=== PATIENT | male | born 1940 | race Caucasian/White ===

== ENCOUNTER 2019-03-28 20:07 | Observation (INO) ==
[2019-03-28] MEDS ORDERED: ASPIRIN PO ONE (20:20)
--- NOTE | 2019-03-28 21:11 | Diag Imaging Result Doc PS360 ---
EXAM: CHEST-2 VIEWS 03/28/2019 HISTORY: sob TECHNIQUE: PA and lateral chest COMMENT: There is a calcified granuloma in the left lower lobe. There are calcified nodes in the subcarina. The heart size is smaller in appearance than on 01/05/2019. The lungs are also clearer. There is a double-lumen dialysis catheter in the right internal jugular with its tip just above the right atrium. IMPRESSION: Improved cardiomegaly and pulmonary edema. Electronically signed by Tyson Shore 03/28/2019 9:09 PM
[2019-03-28 23:03] LABS: BASO# 0.02 X1000 (0.0-0.2); BASO% 0.6 % (0.0-0.8); EOS# 0.06 X1000 (0.0-0.7); EOS% 1.7 % (0.0-10.0); HEMATOCRIT 31.9 % (42.0-52.0); HEMOGLOBIN 10.3 g/dL (14.0-18.0); IMM GRAN# 0.03 X1000 (0.0-0.04); IMM GRAN% 0.9 % (0.0-0.5); LYMPH# 0.63 X1000 (1.2-3.4); LYMPH% 18.2 % (20.5-51.1); MCH 32.3 PG (27-31); MCHC 32.3 g/dL (33-37); MONO# 0.37 X1000 (0.11-0.59); MONO% 10.7 % (1.7-9.3); MPV 13.1 FL (7.4-10.4); NEUT# 2.35 X1000 (1.4-6.5); NEUT% 67.9 % (42.2-75.2); PLT 43 X1000 (130-400); RBC 3.19 XMIL (4.7-6.1); RDW 14.9 % (11.5-14.5); WBC 3.46 X1000 (4.8-10.8)
[2019-03-28 23:14] LABS: INR 1.02; PROTIME 14.2 Seconds (11.0-16.0)
[2019-03-28 23:26] LABS: ALB/GLOB RATIO 0.6; CREATININE 3.5 mg/dL (0.7-1.2); POTASSIUM 4.3 mmol/L (3.5-5.1); TOTAL BILIRUBIN 0.88 mg/dL (0.20-1.00); TOTAL PROTEIN 7.7 g/dL (6.3-8.3)
[2019-03-28 23:31] LABS: CALCIUM 6.8 mg/dL (8.8-10.2)
[2019-03-29] MEDS ORDERED: CALCIUM GLUCONATE 1 GM in NS 50 ML IV ONE (00:11)
[2019-03-29] MEDS ORDERED: NORCO-10 PO ONE (00:28)
[2019-03-29] MEDS ORDERED: ZOFRAN IV ONE (00:54)
[2019-03-29] MEDS ORDERED: DILAUDID IV ONE (00:54)
--- NOTE | 2019-03-29 01:08 | PROVIDER DOCUMENTATION ---
This chart was entered by Tammy Burdick Scribe, acting as scribe for Kleber Wilkinson MD. HPI-General Adult - General Chief Complaint: Shortness of Breath Stated Complaint: BONE CANCER--SOB Time Seen by Provider: 03/28/19 20:55 Source: patient, family Allergies/Adverse Reactions: Patient Allergies Allergy/AdvReac Type Severity Reaction Status Date / Time lenalidomide [From Revlimid] Allergy ANAPHYLAXIS Verified 08/20/18 10:22 ondansetron [From Zofran] Allergy Unknown Verified 08/20/18 10:23 Home Medications: Home Medication List Medication Instructions Recorded Confirmed Last Taken Type Aspirin [Aspir-Low] 81 mg PO DAILY 03/31/18 01/01/19 01/07/19 History Atorvastatin Calcium [Lipitor] 80 mg PO QHS 03/31/18 01/01/19 01/07/19 History Diphenhydramine [Benadryl] 25 mg PO HS 03/31/18 01/01/19 01/07/19 History Levothyroxine [Synthroid] 112 microgm PO DAILY 03/31/18 01/01/19 01/01/19 History Multivitamin [Multivitamins] 1 each PO DAILY 03/31/18 01/01/19 01/08/19 History Tamsulosin [Flomax] 0.4 mg PO QHS 03/31/18 01/01/19 01/07/19 History Carvedilol [Coreg] 6.25 mg PO BID #60 tab 04/07/18 01/01/19 01/08/19 Rx Ondansetron Odt [Zofran 4 mg Odt] 4 mg PO Q6H PRN PRN #30 tab 04/07/18 01/01/19 08/20/18 Rx Hydrocodone/Acetaminophen [[place] 10 each PO Q6H PRN 08/20/18 01/01/19 01/08/19 History 7.5-325 Tablet] Cetirizine HCl [Zyrtec] 10 mg PO DAILY 01/01/19 01/01/19 01/08/19 History Dronabinol [Marinol] 10 mg PO BID 01/01/19 01/01/19 01/08/19 History Furosemide [Lasix] 40 mg PO DAILY PRN PRN 0401/01/19 12/26/18 History Lenalidomide [Revlimid] 5 mg PO EVERY OTHER DAY 01/01/19 01/01/19 12/31/18 History - History of Present Illness -Gen Adult Nature of Presenting Problems: Pt is 78/M presenting to ED w/ low o2 at home, at bedside sts that it was 86% at 17:30. He has had some increasing weakness and some coughing. Pt currently is on Chemo for bone cancer. He is also a MWF dialysis PT. HX of HTN,COPD as well. Pt is a 1 PPD smoker. Severity: reports: mild Onset/Duration: reports: 1-3 hours ago Timing: reports: still present Context/Activities at Onset: reports: none Modifying Factors: improves with: nothing Associated Symptoms: reports: cough, weakness. denies: chest pain, diaphoresis, dizziness, nausea Similar Symptoms Previously?: No Recently seen or treated by another doctor?: No Review of Systems - Adult - REVIEW OF SYSTEMS - ADULT Constitutional: reports: no symptoms reported. denies: chills, fever Eyes: reports: no symptoms reported Ears, Nose, Mouth & Throat: reports: no symptoms reported Cardiovascular: reports: no symptoms reported. denies: chest pain Respiratory: reports: cough, shortness of breath. denies: wheezing Gastrointestinal: reports: no symptoms reported. denies: abdominal pain, nausea, vomiting Genitourinary: reports: no symptoms reported Musculoskeletal: reports: no symptoms reported Integumentary: reports: no symptoms reported Neurological: reports: no symptoms reported. denies: dizziness/vertigo, hea dache/migraines Psychiatric: reports: no symptoms reported Endocrine: reports: no symptoms reported Hematologic/Lymphatic: reports: no symptoms reported Allergic/Immunologic: reports: no symptoms reported All Other Systems: Reviewed and Negative Past History - Adult - PAST MEDICAL HISTORY-ADULT Review of Records: reports: Old Records Reviewed, Nursing Assessment Review, Medications Reviewed, Social history reviewed & non-contributory. Genitourinary: reports: cancer (prostate) - PRIOR SURGERIES/PROCEDURES Surgical/Procedure History: reports: reviewed, not pertinent - IMMUNIZATION STATUS Childhood Immunizations: See Nurse Assessment Flu Vaccine: See Nurse Assessment - FAMILY HISTORY Family History: reviewed, not pertinent - SOCIAL HISTORY Smoking: cigarettes, greater than 1 pack/day Provider spent 3-5 mins advising pt. on dangers of tobacco.: Discussed manners to quit use, and f/u contacts for add'l counseling. Substance Use: none/never Alcohol Use Frequency: never Living Situation: family Physical Exam-General - PHYSICAL EXAM-ADULT Initial Vital Signs Reviewed: Yes - CONSTITUTIONAL General Appearance: appears well, alert, no apparent distress - EYES Eyes: PERRL/EOMI, pink conjunctivae - HEAD, EARS, NOSE, MOUTH & THROAT HENMT: normocephalic/atraumatic, moist mucous membranes, normal ENT inspection, TMs normal, pharynx normal - NECK Neck: non-tender, full range of motion, supple - RESPIRATORY Respiratory: lungs clear. negative: crackles, rales, rhonchi - CARDIOVASCULAR Cardiovascular: regular rate, rhythm. negative: JVD, gallop/S3, irregularly irregular - GASTROINTESTINAL (ABDOMEN) Abdominal Exam: normal bowel sounds, non tender, soft - LYMPHATIC Lymphatic: no adenopathy - MUSCULOSKELETAL Back Exam: normal inspection, no CVA tenderness, no vertebral tenderness Extremity: normal range of motion, non-tender, normal gait, normal inspection, no pedal edema, no calf tenderness, tenderness (mild to moderate generalized tenderness of all 4 extremities) - SKIN Integumentary: normal color, warm/dry - NEUROLOGIC Neurologic: cps team lead II-XII nml as tested, grossly normal, no motor/sensory deficits. negative: facial droop, focal weakness - PSYCHIATRIC Psych/Mental Status: normal mood/affect, normal thought content, normal thought process, oriented x 3 Progress - PLAN OF CARE/RESULTS Progress/Plan/Lab Results: Vital Signs - 8 hr 03/28/19 20:11 Temperature 98.0 F Pulse Rate 59 L Respiratory Rate 18 Blood Pressure 124/58 O2 Sat by Pulse Oximetry 92 L Orders Category Date Time Status Cardiac Monitoring DIRECTED Care 03/28/19 20:21 Active Oxygen Therapy- ED Nursing DIRECTED Care 03/28/19 20:21 Active Saline Loc NOW Care 03/28/19 20:21 Active CHEST-2 VIEWS [RAD] Stat Exams 03/28/19 20:21 Taken CBC WITH ELECTRONIC DIFF [HEME] Stat Lab 03/28/19 20:21 Uncollected CK PROFILE [SP CHEM] Stat Lab 03/28/19 20:21 Uncollected COMPREHENSIVE METABOLIC PANEL [CHEM] Stat Lab 03/28/19 20:21 Uncollected PRO B-NATRIURETIC PEPTIDE Stat Lab 03/28/19 20:21 Uncollected PROTIME WITH INR [COAG] Stat Lab 03/28/19 20:21 Uncollected PTT [COAG] Stat Lab 03/28/19 20:21 Uncollected TROPONIN T Stat Lab 03/28/19 20:21 Uncollected Aspirin Med 03/28/19 20:20 Discontinued 325 mg PO NOW ONE CP/SOB/Palp >45 yrs of Age Stat Oth 03/28/19 20:20 Ordered EKG [EKG] Stat Ther 03/28/19 20:21 Ordered Result Diagrams: 03/28/19 22:35 03/28/19 22:35 - EKG 1 Time of EKG reading by physician:: 20:25 EKG Read and Signed by:: Kleber Wilkinson EKG Interpretation (*Must complete 3 of following elements*): Abnormal (sinus rhythm with premature atrial complexes. Left axis deviation, Voltage criteria for left ventricular hypertrophy. Inferior infarct, age undetermined. Prolonged QT, Abnormal ECG) Rate: 67 Rhythm: Sinus rhythm [place]: left QRS: normal IA Interval: normal ST Wave: normal Departure - Departure Date of Disposition Decision: 03/29/19 Time of Disposition Decision: 01:06 DIAGNOSIS: Chest pain, SOB (shortness of breath), Elevated troponin, ESRD (end stage renal disease) on dialysis, Hypocalcemia Disposition: ADMITTED INPATIENT 09 Certified Medical Emergency: Emergent Condition: Fair Referrals and Follow-Ups: None,PCP [Primary Care Provider] - - Critical Care Note This patient required my direct & personal management of CC.: No Attestation - Physician/ EMMETT Attestation Patient care was provided by Advanced Practice Provider:: No The physician spent face to face time with patient:: Yes Advanced Practice Provider documentation review:: Supervising physician onsite and consulted in the evaluation and care of this patient. The physician did have a face to face encounter with the patient. This chart was documented by the indicated scribe, (Tammy Burdick Scribe) and accurately reflects the services I performed and decisions made by , Kleber Wilkinson MD, as attested by the provider's signature.
--- NOTE | 2019-03-29 02:38 | HISTORY AND PHYSICAL ---
PRIMARY CARE PHYSICIAN: Dr. Gunter. CHIEF COMPLAINT: Pain all over. HISTORY OF PRESENTING ILLNESS: An 78-year-old male with a history of prostate cancer, multiple myeloma, coronary artery disease, end-stage renal disease on renal dialysis Saturday, and Saturday, who had presented to emergency department with complaint of worsening pain all over. The patient states that his shoulder hurts, his back hurts and multiple joints he is having pain. Patient states that his [place] is not lasting that long and his pain has not improved. The patient was evaluated in the emergency department. Due to his intractable pain, it was thought that we will place him for observation for further evaluation and management. At the time of my examination, he had denied any headache, fever, chills, chest pain, hemoptysis, but complained of pain all over. PAST MEDICAL HISTORY: Includes prostate cancer, multiple myeloma, coronary artery disease, hypothyroidism, end-stage renal disease. PAST SURGICAL HISTORY: Coronary artery bypass. ALLERGIES: Zofran. CURRENT MEDICATIONS: Aspirin 81 mg p.o. daily, atorvastatin 80 mg p.o. at bedtime, carvedilol 6.25 mg p.o. b.i.d., Marinol 10 mg p.o. b.i.d., Lasix 40 mg p.o. daily, [place] 7.5 one p.o. q.6 hours, Revlimid 5 mg as directed, levothyroxine 112 mcg p.o. daily, Flomax 0.4 mg p.o. at bedtime. SOCIAL HISTORY: 60+ pack years history of smoking. Denies any history of alcohol or illicit drug use. FAMILY HISTORY: Positive for coronary artery disease in mother. REVIEW OF SYSTEMS: Fourteen point review of system as listed in HPI. Other systems negative. PHYSICAL EXAMINATION: GENERAL: Cooperative, friendly male. He is complaining of pain all over. VITAL SIGNS: Temperature 98.0 degrees, pulse 69, respiration 18, blood pressure 124/58. He is saturating 92% on room air. HEENT: Atraumatic, normocephalic. Extraocular movements intact. PERRLA. NECK: No masses. CHEST: Rhonchi. CARDIOVASCULAR: Regular rate and rhythm. ABDOMEN: Soft, positive bowel sounds. EXTREMITIES: No edema. NEUROLOGIC: He is awake, alert, oriented x3. GENITOURINARY: No bladder distention. SKIN: Warm. LABORATORIES AND STUDIES: WBC 3.46, hemoglobin 10.2, hematocrit 31.9, platelets 43,000. Sodium 135, potassium 4.3, chloride 89, CO2 is 31, BUN is 27, creatinine 3.5, glucose is 120. ProBNP is 35,000. Troponin is 0.091. ASSESSMENT: An 78-year-old elderly male with a history of prostate cancer, multiple myeloma, coronary artery disease, end-stage renal disease, who had presented to the emergency department with complaint of pain all over. He states that his current pain medication is not lasting long enough to relieve his pain. He was evaluated in the emergency department and due to his presenting symptoms we will place him for observation for further evaluation and management. 1. Intractable pain. 2. Multiple myeloma. 3. Elevated troponin in setting of end-stage renal disease. 4. Hypothyroidism. PLAN: 1. We will admit patient to medical floor with telemetry. 2. We will continue with supportive treatment with adequate pain control. 3. We will consult his oncologist for his multiple myeloma. 4. Continue to trend troponins. 5. Restart other home medications. 6. We will put patient on DVT prophylaxis with SCD. 7. We will continue to follow, and reassess and make further recommendation based on patient's clinical course. cc: Roe Pacheco MD
[2019-03-29] MEDS: PERCOCET-10 PO PRN ×3 (03:57→20:03)
[2019-03-29] MEDS: DUONEB (A & A) INH PRN ×4 (08:06→19:15)
[2019-03-29] MEDS ORDERED: DURAGESIC 25 MICROGM/HR PATCH TD SCH (11:45)
--- NOTE | 2019-03-29 12:16 | PROGRESS NOTE ---
DATE: 03/29/2019 SUBJECTIVE: This morning, Mr. Burch refers to be doing fairly okay. Does not want really anybody to bother him. He said he has been hurting everywhere and he feels extremely weak. The daughter was at the bedside at the time of the encounter. OBJECTIVE: Current Vital Signs: Blood pressure is 98/54, pulse of 61, respirations are 14, temperature is 99.1 degrees. The patient was saturating 92%. General Examination: Mr. Burch is an 78-year-old, gentleman. He is in bed. No distress. HEENT: Mucosa is pink. Anicteric. Acyanotic. Neck: Supple. Chest: Air entry is bilaterally reduced. There is some faint end expiratory wheezing. Cardiovascular: Regular rate and rhythm. Abdomen: Soft. Mildly tender all over but no rebound. No guarding. Extremities: No pedal edema. [employer]: The patient is awake. Follows basic commands. He just wants to be left alone. Laboratory Data: From yesterday has been reviewed. Patient is pancytopenic. Chemistry is also reflective of his renal failure. A chest x-ray showed improved cardiomegaly and pulmonary edema. ASSESSMENT: 1. Acute hypoxemic respiratory failure. Patient's oxygen saturation at home was said to have been 86% on room air. He continues to be in the low 90s here in the hospital. A chest x-ray was unremarkable. We are going to do a CT scan of the chest. Unfortunately, we cannot use contrast because of his kidney failure but at least, we will get a better view of the lung anatomy. We will also do D-dimers and an ultrasound of both lower extremities to rule out possible venous thromboembolism. 2. Chronic obstructive pulmonary disease with bronchospasms. This could also potentially explain some of his hypoxemia. We will start him on standard care of therapy including antibiotics, steroids, and nebulization therapy. 3. Intractable musculoskeletal pain, most likely due to his underlying multiple myeloma. We will continue addressing this with narcotics. 4. Generalized weakness. We think the etiology could be multifactorial including the underlying malignancy, bone marrow failure, possible sepsis. We will continue addressing each one of them. We will also get physical therapy to start working with him from tomorrow. 5. History of multiple myeloma. Patient follows up with Dr. Farah. He will be notified. 6. End-stage renal disease, on hemodialysis. We will notify nephrology tomorrow. 7. Hypothyroidism. Patient is on levothyroxine supplement. We will check on his thyroid status to know and continue with his supplement. PLAN: Today, we are going to do blood cultures. We are going to start Mr. Burch on antibiotics for two reasons, one for the possible COPD exacerbation and, two, suspicion of possible sepsis. We will do a CT scan of the chest, abdomen, and pelvis to rule out any potential source of infection. He has been started on steroids for chronic obstructive pulmonary disease exacerbation and we will continue with the bronchodilation therapy. The patient will be seen by both hematology/oncology and nephrology. If the blood cultures come back negative, we will narrow down the antibiotics just to target the COPD exacerbation. cc: Sergio Landa MD
[2019-03-29 12:43] LABS: BLOOD TYPE ARTERIAL; SAMPLE BLOOD
[2019-03-29 12:50] LABS: HCO3-(ACT) 34.6 mmoll (20.0-26.0); MODALITY CANNULA; PCO2(98.6) 32 mmHg (35-45); PO2(98.6) 107 mmHg (60-100); THB 9.2 g/dL (11.5-17.4)
[2019-03-29 12:51] LABS: ALLEN TEST YES
[2019-03-29] MEDS: TYLENOL PO PRN ×2 (12:59→20:03)
[2019-03-29] MEDS ORDERED: CUBICIN 500 MG in NS 100 ML IV SCH (13:00)
[2019-03-29] MEDS: SOLU-MEDROL IV SCH ×2 (13:03→20:46)
[2019-03-29] MEDS: MAXIPIME 1 GM in NS 50 ML IV SCH (13:03)
[2019-03-29 13:06] LABS: BASO# 0.01 X1000 (0.0-0.2); BASO% 0.8 % (0.0-0.8); EOS# 0.02 X1000 (0.0-0.7); EOS% 1.5 % (0.0-10.0); HEMATOCRIT 28.3 % (42.0-52.0); HEMOGLOBIN 9.3 g/dL (14.0-18.0); IMM GRAN# 0.14 X1000 (0.0-0.04); IMM GRAN% 10.6 % (0.0-0.5); LYMPH# 0.17 X1000 (1.2-3.4); LYMPH% 12.9 % (20.5-51.1); MCH 32.7 PG (27-31); MCHC 32.9 g/dL (33-37); MCV 99.6 FL (81-99); MONO# 0.03 X1000 (0.11-0.59); MONO% 2.3 % (1.7-9.3); MPV 12.4 FL (7.4-10.4); NEUT# 0.95 X1000 (1.4-6.5); NEUT% 71.9 % (42.2-75.2); PLT 36 X1000 (130-400); RBC 2.84 XMIL (4.7-6.1); RDW 14.9 % (11.5-14.5); WBC 1.32 X1000 (4.8-10.8)
[2019-03-29 13:09] LABS: CREATININE 4.2 mg/dL (0.7-1.2); POTASSIUM 3.6 mmol/L (3.5-5.1)
[2019-03-29 13:10] LABS: ALB/GLOB RATIO 0.8; ALBUMIN 2.8 g/dL (3.5-5.0); TOTAL BILIRUBIN 1.02 mg/dL (0.20-1.00); TOTAL PROTEIN 6.5 g/dL (6.3-8.3)
[2019-03-29 13:17] LABS: BANDS 16 % (0-1); CALCIUM 6.5 mg/dL (8.8-10.2); LARGE PLATELETS 1+; LYMPHS 24 % (21-51); MONO 8 % (1-9); SEGS 44 % (42-75)
[2019-03-29] MEDS: NS 1,000 ML IV SCH (13:51)
[2019-03-29 14:15] LABS: INR 1.07; PROTIME 14.8 Seconds (11.0-16.0)
[2019-03-29 14:26] LABS: RETIC% 0.53 % (0.8-2.1); RETIC-HE 35.9 PG (28.2-36.6)
--- NOTE | 2019-03-29 17:22 | Diag Imaging Result Doc PS360 ---
EXAM: CT THORAX/ABD/PELVIS W/O CON 03/29/2019 HISTORY: sepsis TECHNIQUE: This exam was performed using automated exposure control, adjustment of mA or kV according to patient size, and/or use of iterative reconstruction technique. COMMENT: Thorax: There are similar appearing areas of pleural thickening in the major fissures posteriorly on both sides compared to the previous study of 03/31/2018. This is presumably due to fibrosis. There may be some honeycombing in the posterior lower lobes which was actually somewhat more prominently demonstrated on the previous study. There may be additional atelectasis. There is extensive coronary calcification. There has been previous sternotomy. The thoracic aorta is not distended. There are densely calcified subcarinal nodes. The thyroid gland appears somewhat enlarged. This is not changed significantly since the previous study. There is generalized osteopenia. There is vertebral plana at T7 and T8 which has worsened since the previous examination. ABDOMEN/pelvis: There are multiple subcentimeter densely calcified stones in the gallbladder. The gallbladder is slightly distended. There is a fairly large amount of stool in the colon. The small bowel is not distended. The abdominal aorta is not distended. The distal thoracic aorta is somewhat distended 3.9 cm. There is no evidence of free fluid. There is formed stool in the rectum. The prostate is slightly enlarged measuring 4.9 x 5.7 cm in the axial plane. There is no evidence of hydronephrosis or nephrolithiasis. IMPRESSION: 1. Chronic fibrotic changes in the chest. Osteoporosis with worsened compression fractures at T7 and T8. 2. Cholelithiasis. 3. Constipation. Electronically signed by Tyson Shore 03/29/2019 5:19 PM
[2019-03-29] MEDS ORDERED: NS 250 ML IV ONE (20:24)
[2019-03-30] MEDS: MAXIPIME 1 GM in NS 50 ML IV SCH (00:59)
[2019-03-30] MEDS: NS 1,000 ML IV SCH ×2 (01:33→04:53)
[2019-03-30] MEDS: SOLU-MEDROL IV SCH (04:52)
[2019-03-30 06:54] LABS: BASO# 0.01 X1000 (0.0-0.2); BASO% 0.4 % (0.0-0.8); HEMATOCRIT 27.9 % (42.0-52.0); IMM GRAN# 0.02 X1000 (0.0-0.04); IMM GRAN% 0.8 % (0.0-0.5); LYMPH# 0.39 X1000 (1.2-3.4); LYMPH% 14.7 % (20.5-51.1); MCH 32.1 PG (27-31); MCHC 32.3 g/dL (33-37); MCV 99.6 FL (81-99); MONO# 0.18 X1000 (0.11-0.59); MONO% 6.8 % (1.7-9.3); NEUT# 2.05 X1000 (1.4-6.5); NEUT% 77.3 % (42.2-75.2); PLT 32 X1000 (130-400); RDW 14.8 % (11.5-14.5); WBC 2.65 X1000 (4.8-10.8)
[2019-03-30] MEDS: DUONEB (A & A) INH PRN ×3 (07:33→15:40)
[2019-03-30 07:36] LABS: CREATININE 5.4 mg/dL (0.7-1.2)
[2019-03-30 08:21] LABS: CALCIUM 5.6 mg/dL (8.8-10.2)
--- NOTE | 2019-03-30 08:29 | EKG Report ---
Test Performed on : 03/28/2019 8:20:01 PM Test Reason : sob Blood Pressure : / mmHG Vent. Rate : 067 BPM Atrial Rate : 067 BPM P-R Int : 166 ms QRS Dur : 106 ms QT Int : 500 ms P-R-T Axes : 001 -37 034 degrees QTc Int : 528 ms Sinus rhythm. with premature atrial complexes. Left axis deviation Voltage criteria for left ventricular hypertrophy Inferior infarct (cited on or before 31-MAR-2018) Prolonged QT Abnormal ECG When compared with ECG of 31-MAR-2018 15:54, premature atrial complexes. are now present T wave inversion now evident in Anterior leads Nonspecific T wave abnormality no longer evident in Lateral leads QT has lengthened Unconfirmed Result
[2019-03-30] MEDS: TYLENOL PO PRN (08:39)
[2019-03-30 14:13] VITALS: BP 97/54
--- NOTE | 2019-03-30 17:37 | NEPHROLOGY CONSULTATION ---
DATE: 03/30/2019 REASON FOR ADMISSION: Pain, aching all over. REASON FOR CONSULT: End-stage renal disease with assistance with medical management. HPI: Mr. Burch is an 78-year-old white male who is known to our outpatient services for hemodialysis on Saturday, , Saturday at the [facility] in [place]. The patient's states that for the last several weeks he has not felt well, has gotten more weak, presented to the emergency room with pain all over after dialysis on Saturday. States that his [place] was not holding well. In evaluation in the emergency room it was found that he denied any fever or chills, chest pain, no nausea, vomiting, no diarrhea, poor appetite, negative for headache. No hematochezia, hemoptysis, hematuria. His hemoglobin was 10.2 with a white count of 3.46. Blood cultures were currently obtained and he was admitted for further monitoring and evaluation. PAST MEDICAL HISTORY: End-stage renal disease with hemodialysis on Saturday, , Saturday, coronary artery disease, prostate cancer, multiple myeloma, anemia of chronic disease, hypothyroidism and osteodystrophy of chronic disease. PREVIOUS SURGICAL HISTORY: Coronary artery bypass graft, he has a dialysis tunneled catheter to the right chest wall. SOCIAL HISTORY: He is . He lives with his spouse. He is a 60+ pack- year smoker. Denies alcohol or illicit drug use. FAMILY HISTORY: Positive for coronary artery disease in mother, negative for renal disease. ALLERGIES: Listed as Zofran and lenalidomide. REVIEW OF SYSTEMS: Times 10 with pertinent positives listed above in the HPI. HOME MEDICATIONS: Aspirin, atorvastatin, carvedilol, Marinol, Lasix [place], Revlimid, levothyroxine, Flomax. His most recent vital signs temperature 97.7 degrees, blood pressure 97/55, heart rate 101, respirations 16, he is on 2 L nasal cannula. Last recorded saturation is 97%. He has had 1877 in, he has had 0 recorded out, minimal void. LABS: Sodium is 134, potassium 4, chloride 91, CO2 25, BUN 63, creatinine 5.4, glucose 141, patient has an anion gap of 18, calcium is 5.6, he has received calcium gluconate this a.m., previous albumin of 2.8. White count 2.65, hemoglobin 9, hematocrit 27.9 with a platelet count of 32,000. ABGs on admission show pH of 7.64, CO2 32, PO2 107, bicarb 34.6 with a lactate not indicated on 2 L nasal cannula. PT 14.8, INR 1.07, fibrinogen 525 with a D- dimer of 9.48. Patient had a chest x-ray upon admission showing improved cardiomegaly and pulmonary edema. PHYSICAL EXAMINATION: This is an 78-year-old elderly male. He is resting quietly in bed. He had been eating his breakfast. He appears chronically ill, no acute distress. Skin is warm and dry.HEENT: Normocephalic, atraumatic. Conjunctivae pale. He has MARTHA. Mucous membranes are dry. Neck: Supple. Trachea midline. No evidence of JVD. Cardiovascular: He is regular rate and rhythm. No murmur or gallop appreciated. Lungs: Have occasional scattered rhonchi, otherwise clear to auscultation, remains on O2 support, equal excursion. Abdomen: Soft, nontender, positive bowel sounds. Genitourinary: Not inspected. Minimal void with dialysis assist. Integument: Patient has a dialysis tunneled catheter to the right chest wall without redness or drainage, no rashes or lesions evident. Neurological: He is alert and oriented x3. ASSESSMENT AND PLAN: 1. Chronic kidney disease stage 5D. Patient is due for his renal dialysis treatment in the a.m. No indications for intervention today. 2. Electrolytes and acid-base balance. These are acceptable. 3. Anemia. This is stable. 4. Thrombocytopenia. Patient has multiple myeloma. This is routinely followed by his estimating manager. 5. Positive blood cultures with gram-negative rods. Patient has been on vancomycin and Maxipime. We will give ceftaz 2 g q HD for 3 weeks as outpatient. rg Like to thank you for allowing us to follow with this patient. Dictated by CLARISSA Villalta for Pola Smiley MD Face to face encounter, data reviewed, discussed with Jaja Mchugh on 03/30/19. I agree with the above assessment and plan of care. cici cc: CLARISSA Villalta MD [facility]
--- NOTE | 2019-03-30 18:38 | HEMO/ONC CONSULTATION ---
DATE: 03/30/2019 ADMITTING PHYSICIAN: Dr. Landa. REQUESTING PHYSICIAN.: Dr. Landa. We appreciate this consult. CHIEF COMPLAINT: Multiple myeloma. HISTORY OF PRESENT ILLNESS: Mr. Danie Burch is a pleasant 78-year-old male, Dr. Farah with a history of multiple myeloma. The patient is currently being treated with lenalidomide. The patient recently underwent SPEP with improvement in M spike from 2400 to 2000. PET scan on March 27 showed stable thyroid uptake with right 4th rib uptake and diffuse mildly increased marrow signal. The patient presented to [facility] Emergency Department secondary to worsening pain especially in bilateral shoulders and back. The patient reports that his [place] has not been helping as well recently. He was admitted secondary to intractable pain. We are consulted as the patient is well known to us. PAST MEDICAL HISTORY: 1. Prostate cancer. 2. Multiple myeloma. 3. Coronary artery disease. 4. Hypothyroidism. 5. End-stage renal disease. PAST SURGICAL HISTORY: Coronary artery bypass grafting. SOCIAL HISTORY: The patient has a 60+ pack-year history of smoking. He does not use alcohol or illicit drugs. FAMILY HISTORY: Negative for any hematologic or oncologic problems. MEDICATIONS ON ADMISSION: 1. Aspirin. 2. Atorvastatin. 3. Carvedilol. 4. Marinol. 5. Lasix. 6. [place]. 7. Revlimid. 8. Levothyroxine. 9. Flomax. ALLERGIES: Zofran. REVIEW OF SYSTEMS: A 14-point review of systems was obtained and is negative except for mentioned in HPI. PHYSICAL EXAM: Mr. Burch is a pleasant 78-year-old male lying supine in bed in no immediate distress.Vital Signs: Temperature 97.7 degrees, blood pressure 97/55, heart rate 101, respirations 16, O2 saturation 97% on Venturi mask. HEENT: Normocephalic, atraumatic. Mucous membranes are pale and moist. Sclerae anicteric. Extraocular movements intact. Neck: Supple. Lungs: Clear to auscultation bilaterally. Chest expansion equal bilaterally. CV: S1, S2 is heard. No murmurs, rubs or gallops. Abdomen: Nondistended. Extremities: Without clubbing, cyanosis, or edema. Dermatologic: No rashes, bruises or lesions. Neurologic: The patient is awake, alert, oriented x3 and has no focal deficit. LABORATORY DATA: ANC 2.05. Hemoglobin 9.0, hematocrit 27.9, white blood cell count 2.65, platelets 230,000. Sodium 134, potassium 4.0, chloride 91, CO2 is 25, BUN 63, creatinine 5.4, and glucose is 141. Blood culture reveals gram-negative rods. IMAGING STUDIES: CT chest, abdomen and pelvis reveals chronic fibrotic changes in the chest with osteoporosis and worsen compression fractures in T7 and T8. Cholelithiasis and constipation are also revealed. Chest x-ray reveals improved cardiomegaly and pulmonary edema. ASSESSMENT AND PLAN: 1. Multiple myeloma currently on lenalidomide. SPEP revealed improvement in M spike from 2400 to 2000 recently. PET scan on 03/27 showed stable disease with thyroid uptake and right 4th rib uptake as well as diffuse mildly increased marrow signal. 2. Intractable pain in bilateral shoulders not likely secondary to #1. Would manage pain with narcotics as indicated. 3. Elevated troponins with end-stage renal disease. Cardiac enzymes are currently pending. 4. Hypothyroidism, stable at this time. 5. We will follow along with you and make further recommendations pending outcomes. The above reflects the history exam, assessment and plan of Dr. Farah. Dictated by CLARISSA Renee for Wayne Farah MD cc: CLARISSA Renee MD
[2019-03-31 15:37] LABS: pH(98.6) 7.64 (7.35-7.45)
--- NOTE | 2019-04-01 10:51 | DISCHARGE SUMMARY ---
ADMISSION DATE: 03/29/2019 DISCHARGE DATE: 03/30/2019 DISPOSITION: Home. FOLLOWUP: 1. Dr. Smiley. 2. Dr. Farah. CONSULTATION DURING THIS ADMISSION: 1. Hematology/oncology was consulted. Patient was seen by Dr. Farah. 2. Nephrology was consulted. Patient was seen by Dr. Smiley. ADMISSION DIAGNOSES: 1. Intractable pain. 2. Multiple myeloma. 3. Elevated troponin in the setting of endstage renal disease. 4. Hypothyroidism. DIAGNOSES AT THE TIME OF DISCHARGE: 1. Acute hypoxemic respiratory failure, improved. 2. Chronic obstructive pulmonary disease with mild exacerbation. 3. Sepsis with Klebsiella pneumoniae bacteremia. 4. Intractable musculoskeletal pain, most likely due to underlying multiple myeloma. 5. Generalized weakness secondary to underlying sepsis. 6. History of multiple myeloma. Patient follows up with Dr. Farah. 7. Endstage renal disease, on hemodialysis. 8. Hypothyroidism. 9. Pancytopenia secondary to secondary to multiple myeloma, chemotherapy, and acute sepsis, bone marrow suppression. DISCHARGE MEDICATIONS: 1. Aspirin 81 mg p.o. daily. 2. Atorvastatin 80 mg p.o. at bedtime. 3. Levothyroxine 125 mcg p.o. daily. 4. Tamsulosin 0.4 p.o. at bedtime. 5. Carvedilol 6.25 p.o. b.i.d. 6. Furosemide 40 mg p.o. daily. 7. Revlimid 5 mg p.o. every other day. 8. Bortezomib 2.5 IV as directed. 9. Ceftazidime 1 g every 48 hours after dialysis. 10. Prednisone 20 mg p.o. daily. 11. Milk of magnesia. PRESENTING COMPLAIN: Pain all over. HISTORY OF PRESENTING COMPLAINT: Mr. Burch is an 78-year-old, elderly, male who is known to have multiple myeloma, endstage renal disease, hypothyroidism. Came to the emergency department because of remarkable weakness, some chills, and generalized pains. Upon presenting, he was evaluated and admitted. HOSPITAL COURSE: He was started on broad-spectrum IV antibiotics. Blood cultures came back positive for gram-negative. The gram-positive coverage was discontinued. His labs revealed that he was pancytopenic, which we think it was a combination of his underlying malignancy and the chemotherapy side effects as well as acutely worsen by the sepsis picture. However, during the hospital course, Mr. Burch remarkably improved and he became stronger in a day. He was evaluated by nephrology. Dr. Smiley spoke directly with me and from his evaluation, he thought that Mr. Burch could be discharged and he will administer the antimicrobials after dialysis. Today, the microbiology has come back to be Klebsiella pneumoniae which is susceptible to Fortaz. I also had an extensive conversation with the and two other family members who were at the bedside and were concerned about Mr. Burch's current medical condition. I did explain to them that he was septic. However, he is doing a whole lot better and that he needs to continue with the IV antibiotics, which they did understand. All the discharge instructions were discussed with him and with the family. TIME SPENT: The time spent for discharge was 37 minutes. cc: MD Pola Griggs MD Sammy Becdach, MD
== END 2019-03-30 16:44 | disposition home or self-care (01) ==
LOC: ED 20:07 → 4N 20:07 → SUATTDRO 03-29 01:57 → 4N 03-29 14:43
PROVIDERS: ATTEND Internal Medicine
CPT/HCPCS: 71020; 71046; 71250; 74176; 80048; 80053; 82550; 82805; 83880; 84484; 85025; 85045; 85379; 85384; 85610; 85730; 87040; 87077; 87186; 93005; 93970; 94640; 94761; 97162; 97530; A9270; J0610; J0692; J0878; J1170; J2405; J2920; J7030; J7040

== ENCOUNTER 2019-06-01 10:09 | Inpatient (IN) ==
--- NOTE | 2019-06-01 11:37 | Diag Imaging Result Doc PS360 ---
CHEST-1 VIEW - 06/01/2019 INDICATION: sob COMPARISON: 03/28/2019 FINDINGS: Stable right-sided dialysis catheter. Stable CABG changes. There is worsening cardiomegaly. There is new hazy infiltrate in the right midlung and lung base. There is a small right pleural effusion. Pulmonary vascularity is somewhat distended. IMPRESSION: Worsening cardiomegaly and pulmonary vascular congestion. Infiltrates throughout the right midlung and lung base suggesting pneumonia or aspiration. Trace right pleural effusion. Electronically signed by Kuldeep Mcdaniel 06/01/2019 11:34 AM
[2019-06-01 11:38] LABS: ALLEN TEST YES; BE 8.8 mmoll (-3.0-3.0); BLOOD TYPE ARTERIAL; HCO3-(ACT) 31.7 mmoll (20.0-26.0); METHB 1.4 % (0.0-1.5); O2HB 94.1 % (95.0-99.0); PCO2(98.6) 34 mmHg (35-45); PO2(98.6) 110 mmHg (60-100); SAMPLE BLOOD; SAO2 98.2 % (95.0-100.0)
[2019-06-01 11:40] LABS: MODALITY CANNULA; pH(98.6) 7.57 (7.35-7.45)
[2019-06-01] MEDS ORDERED: NS 1,000 ML IV ONE (11:41)
[2019-06-01] MEDS ORDERED: LEVAQUIN 500 MG/D5W 500 MG/100 ML IVPB IV ONE (11:41)
[2019-06-01 12:19] LABS: INR 1.25; PROTIME 15.9 Seconds (11.0-16.0)
[2019-06-01 12:20] LABS: PTT 29.5 Seconds (22.3-41.8)
[2019-06-01 12:35] LABS: BASO# 0.01 X1000 (0.0-0.2); BASO% 0.1 % (0.0-0.8); HEMATOCRIT 38.4 % (42.0-52.0); HEMOGLOBIN 11.9 g/dL (14.0-18.0); IMM GRAN# 0.07 X1000 (0.0-0.04); IMM GRAN% 0.8 % (0.0-0.5); LYMPH# 0.26 X1000 (1.2-3.4); LYMPH% 3.1 % (20.5-51.1); MCH 32.9 PG (27-31); MCV 106.1 FL (81-99); MONO# 0.63 X1000 (0.11-0.59); MONO% 7.5 % (1.7-9.3); NEUT# 7.41 X1000 (1.4-6.5); NEUT% 88.5 % (42.2-75.2); PLT 25 X1000 (130-400); RBC 3.62 XMIL (4.7-6.1); RDW 16.6 % (11.5-14.5); WBC 8.38 X1000 (4.8-10.8)
--- NOTE | 2019-06-01 12:39 | EKG Report ---
Test Performed on : 06/01/2019 10:47:23 AM Test Reason : EXTREMITY PAIN/CANCER Blood Pressure : / mmHG Vent. Rate : 095 BPM Atrial Rate : 375 BPM P-R Int : 000 ms QRS Dur : 102 ms QT Int : 384 ms P-R-T Axes : 000 -51 094 degrees QTc Int : 482 ms Atrial flutter. with variable AV block. Left axis deviation Inferior infarct (cited on or before 31-MAR-2018) Anterior infarct , age undetermined Abnormal ECG When compared with ECG of 28-MAR-2019 20:20, (Unconfirmed) Atrial flutter. has replaced Sinus rhythm. Anterior infarct is now present T wave inversion no longer evident in Anterior leads Nonspecific T wave abnormality now evident in Lateral leads Unconfirmed Result
[2019-06-01 12:52] LABS: ALB/GLOB RATIO 0.9; ALBUMIN 2.3 g/dL (3.5-5.0); CALCIUM 6.6 mg/dL (8.8-10.2); CREATININE 4.8 mg/dL (0.7-1.2); POTASSIUM 3.6 mmol/L (3.5-5.1); TOTAL BILIRUBIN 0.68 mg/dL (0.20-1.00)
[2019-06-01] MEDS ORDERED: CALCIUM GLUCONATE 1 GM in NS 50 ML IV ONE (13:15)
[2019-06-01] MEDS ORDERED: TYLENOL PO PRN (14:35)
[2019-06-01] MEDS ORDERED: COMPAZINE PO PRN (14:36)
[2019-06-01] MEDS ORDERED: NORCO-7.5 PO PRN ×2 (14:36→22:00)
[2019-06-01] MEDS ORDERED: VANCOMYCIN IV PER PHARMACY MISC SCH (14:45)
[2019-06-01] MEDS ORDERED: ZOSYN 3.375 GM in NS 50 ML IV SCH (14:45)
[2019-06-01] MEDS ORDERED: DUONEB (A & A) INH SCH (16:00)
[2019-06-01] MEDS: ZYVOX 600 MG/D5W 600 MG/300 ML IVPB IV SCH (16:07)
[2019-06-01] MEDS: ZOSYN 2.25 GM in NS 50 ML IV SCH ×2 (16:08→23:38)
[2019-06-01 16:09] LABS: HEMOGLOBIN 11.9 g/dL (14.0-18.0); LYMPH# 0.14 X1000 (1.2-3.4); LYMPH% 2.4 % (20.5-51.1); MCH 34.3 PG (27-31); MCHC 32.2 g/dL (33-37); MCV 106.6 FL (81-99); MONO# 0.14 X1000 (0.11-0.59); MONO% 2.4 % (1.7-9.3); MPV 13.8 FL (7.4-10.4); NEUT# 5.57 X1000 (1.4-6.5); NEUT% 95.2 % (42.2-75.2); RBC 3.47 XMIL (4.7-6.1); RDW 16.6 % (11.5-14.5); WBC 5.85 X1000 (4.8-10.8)
[2019-06-01 16:10] LABS: PLT 23 X1000 (130-400)
[2019-06-01] MEDS ORDERED: NEXIUM IV SCH (17:45)
[2019-06-01] MEDS ORDERED: SODIUM CHLORIDE 0.9% INJ SCH (17:45)
[2019-06-01] MEDS: PROAMATINE PO SCH (17:52)
[2019-06-01] MEDS: PHOSLO PO SCH ×2 (17:52→22:19)
[2019-06-01] MEDS ORDERED: MORPHINE IV ONE (20:42)
--- NOTE | 2019-06-01 20:43 | HISTORY AND PHYSICAL ---
PRIMARY CARE PROVIDER: Dr. Becky Gunter. ONCOLOGIST: Dr. Farah. SIGN BUILDER SUPERVISOR: Dr. Smiley. BUNDLE PERSON: Dr. John. CHIEF COMPLAINT: Fatigue, no energy, nausea, and difficulty swallowing for at least 3 or 4 days. The swallowing may be for longer. HISTORY OF PRESENT ILLNESS: Mr. Danie Burch is an 78-year-old male with a medical history of recent diagnosis of multiple myeloma in March 2018. Receives weekly chemotherapy. Followed by Dr. Farah. Diagnosis of end-stage renal disease with hemodialysis for Tuesdays, , Saturdays, diagnosed December 2018, followed by Dr. Smiley, and has been seen by Dr. John in the past for gastrointestinal bleeding, and is supposed to see him in the next day or so for dysphagia. Apparently, for at least 3 or 4 days, but worsened over the last 2 days, he has had no energy, more drowsy, frequent nausea, more difficulties with swallowing and decreased p.o. intake. He apparently does have issues with coughing when he swallows. He has been having lots of dizzy spells, a little chest pain here and there, but frequently, and was found on the monitor to be in atrial flutter with a rapid ventricular response in the low 100s. Blood pressure is currently stable, but hanging 90s to low 100s. Chest x-ray revealed that he has a right middle and lower lobe pneumonia. He will be started on antibiotics. We will consult Sofi Voss, Dora, and Cardiology, Dr. Wilcox. PAST MEDICAL HISTORY: 1. Anemia. 2. Chronic pain syndrome. 3. Coronary artery disease, myocardial infarction in 1998 with CABG x3. 4. Prostate cancer, but no treatment. 5. Hypothyroidism. 6. GI bleed. 7. BPH. 8. COPD. 9. Multiple myeloma, diagnosed March 2018, followed by Dr. Farah, weekly chemotherapy. 10. End-stage renal disease, December 2018, with dialysis Saturday, , Saturday, followed by Dr. Smiley. 11. Systolic congestive heart failure. 12. Pulmonary hypertension. SURGICAL HISTORY: 1. CABG x3. 2. Right chest port for hemodialysis. 3. Left arm AV graft placed last month, currently in the maturing stage; it is immature at this time. SOCIAL HISTORY: He has been smoking since the age of 8, and currently is less than a pack a day. Denies chewing tobacco, alcohol, or illicit drug use. Lives at home with his of 20 years. FAMILY HISTORY: Mother had coronary disease on her side of the family. Father had coronary artery disease on his side of the family, and there was an unknown cancer. ALLERGIES: Zofran and sulfa. HOME MEDICATIONS: 1. Aspirin 81 mg p.o. daily. 2. Calcium acetate 1334 mg p.o. 4 times daily. 3. Colace 100 mg p.o. twice daily. 4. Compazine 10 mg p.o. every 8 hours p.r.n. 5. Decadron; apparently only takes that with chemotherapy treatments at [facility]. 6. Fentanyl patch transdermal every 3 days. 7. Lasix 40 mg p.o. daily p.r.n. 8. Midodrine 1 tablet 10 mg p.o. t.i.d. 9. Multivitamin once daily. 10. [place] 7.5 p.o. q.6 hours p.r.n. 11. Potassium 10 mEq p.o. daily. 12. Remeron 30 mg p.o. daily. 13. Revlimid 5 mg p.o. every other day. 14. Synthroid 125 mcg p.o. daily. 15. Velcade 3.5 mg IV, takes weekly for 4 weeks and has 1 week off, with last week being the off week. 16. Zyrtec 10 mg p.o. daily. REVIEW OF SYSTEMS: A 14 point review of systems are complete and all are negative except for those mentioned above in HPI. PHYSICAL EXAMINATION: VITAL SIGNS: Temperature 97.7 degrees, heart rate 105, respiratory rate 22, blood pressure 93/67, O2 saturation was 90% when I was in there, and that is on 5 L nasal cannula. He is 5 feet 6 inches tall, 119 pounds. BMI is 19.3. GENERAL: Mr. Danie Burch is an 78-year-old, ill-appearing male. He is in no acute distress. He is able to answer questions appropriately. He is little bit hard of hearing. HEENT: Atraumatic, normocephalic. Pupils equal, round, reactive to light. Extraocular movements intact. Mucous membranes are dry. NECK: Trachea midline. CARDIOVASCULAR: Irregularly irregular. Tachycardic rate and rhythm. No rubs, gallops, murmurs. 1+ pitting lower extremity edema. +2 dorsalis and radial pulses. Mild JVD bilaterally. Negative for carotid bruits. PULMONARY: Clear to auscultation. Bilateral breath sounds, decreased in the right base. No accessory muscle use or work of breathing noted. Tolerating 5 L nasal cannula. GI: Soft, nontender, nondistended. Positive bowel sounds x4. EXTREMITIES: Moves all extremities equally. Full range of motion. NEUROLOGIC: Alert and oriented x3. Follow commands. Sensory is intact. SKIN: Warm, dry, intact. LABORATORY DATA: White blood cells 5000, hemoglobin 11, hematocrit 37, platelet count 23,000. INR is 1.25, PTT is 29.5. ABGs: pH 7.57, pCO2 34, pO2 110, bicarb 31, base excess 8.8, saturation 94%. Lactate is 1.6. Serum lactate is 1.8. Sodium 135, potassium 3.6, BUN 57, creatinine is 4.8, glucose 107, calcium 6.6, bilirubin 0.68, AST 12, ALT 7, troponin 0.111. ProBNP greater than 35,000. Albumin is 2.3. IMAGING: Chest x-ray: Cardiomegaly, pulmonary vascular congestion, infiltrates throughout the right middle and lower lungs, looks like aspiration, right pleural effusion is trace. EKG: Atrial flutter with a variable rate; the rate was 95. ASSESSMENT AND PLAN: 1. Right middle and lower lobe pneumonia. We will get broad spectrum antibiotics, nebulizers, and oxygen. Will do cough, deep breathe, incentive spirometer. 2. Acute hypoxemic respiratory failure. Requires oxygen. He is on 5 L with maintaining a saturation around 90 at this time. Again, he will be on nebulizers. 3. Complaints of dysphagia, now with signs of aspiration pneumonia. Apparently, he is supposed to see Dr. John here soon in the next couple of days. We will do a consult. Will also consult swallow evaluation and nutritional consult as he has had worsening p.o. intake. 4. New onset atrial fibrillation/atrial flutter with rapid ventricular response, low 100s rate, mildly low blood pressure, but is 90s to low 100s. Cardiology, Dr. Wilcox, has been consulted. Potassium is 3.6, but he is an end-stage renal dialysis patient. We will not replace that at this time. The magnesium level has been ordered. 5. Chronic obstructive pulmonary disease. He is not retaining carbon dioxide at this time. He is all hypoxemic at this time, but again, will be on nebulizers and oxygen, and antibiotics for the pneumonia. 6. End-stage renal disease. Has a right chest dialysis catheter and a left upper extremity arteriovenous graft that is not matured yet; it was put in last month. Followed by Dr. Smiley and will reconsult him. 7. Multiple myeloma. He gets weekly chemotherapy. That was diagnosed March 2018. Dr. Farah is consulted. 8. Tobacco abuse. Cessation discussed. 9. Systolic congestive heart failure, likely with some acute on chronic. It looks like his last ejection fraction was around 38% per echocardiogram that was performed on 09/12/2018. May need to repeat the echocardiogram. Volume can be removed through dialysis if needed. He still makes the occasional urine, but primarily is almost anuric. He does have some elevation in his jugular venous distention at this time. Again, Cardiology has been consulted. 10. Deep venous thrombosis prophylaxis with sequential compression devices for now. Dictated by CLARISSA Mitchell for Robbi Robert MD cc: CLARISSA Mitchell MD
--- NOTE | 2019-06-01 21:21 | HISTORY AND PHYSICAL ---
The patient came in with shortness of breath. He has a lot of complicated issues. He has CAD. He is hypotensive. He has a history of multiple myeloma. He is a dialysis patient. He is status post CABG. He has dysphagia. I think the main issue is pneumonia and recent chemotherapy, and he was admitted for those issues. He also has CHF exacerbation. He is at risk for aspiration because of some dysphagia issues, that he is actually due to see Dr. John for. The patient was found to have pneumonia and volume overload. He was admitted as such. On pulmonary exam he has rales, rhonchi. He is extremely kind of meza to hyperpigmented. Bilateral arcus senilis. We will admit him for breathing treatments. He has developed some atrial flutter, which he says he has had issues with in the past. Platelet count is also very low. I did discuss with him frankly and his , and they did not want any aggressive resuscitative measures, although rest of issues will be handled. IMPRESSION AND PLAN: 1. Pneumonia. We will continue antibiotics, breathing treatments. 2. Atrial flutter. We will have to be careful with his breathing treatments. He is in the 100 range. Digoxin is going to be probably tricky since he is in atrial flutter, but he has pulmonary edema, so beta blockers are probably not a great option. I am not sure about Cardizem, but he is hypotensive, so we may have kind of a difficult situation. He had an echocardiogram about 9 months ago and ejection fraction was 38% at that time, so possibly amiodarone would be the only option, but we may just give him some low dose beta blockers and see how he does. 3. For the congestive heart failure, we will continue treatment and follow. 4. Again, we confirmed the Do Not Resuscitate status and will continue to monitor. cc: Robbi Robert MD
[2019-06-01] MEDS: COLACE PO SCH (22:19)
[2019-06-01] MEDS: ATROVENT NEB INH SCH (23:04)
[2019-06-01] MEDS: XOPENEX NEB INH SCH (23:04)
[2019-06-02] MEDS: ATROVENT NEB INH SCH ×2 (03:36→11:36)
[2019-06-02] MEDS ORDERED: TIGHT: 0.2 ML/HR FOR DIALYSIS MISC PRN (06:18)
[2019-06-02] MEDS ORDERED: NS 2,000 ML MISC PRN (06:18)
[2019-06-02] MEDS ORDERED: HEPARIN IV PRN (06:18)
[2019-06-02] MEDS ORDERED: SYNTHROID PO SCH (07:00)
[2019-06-02] MEDS ORDERED: DILAUDID IV ONE (08:25)
[2019-06-02] MEDS: ZOSYN 2.25 GM in NS 50 ML IV SCH (08:36)
[2019-06-02] MEDS: ZYVOX 600 MG/D5W 600 MG/300 ML IVPB IV SCH (08:36)
[2019-06-02] MEDS: COLACE PO SCH (08:38)
[2019-06-02] MEDS: PHOSLO PO SCH (08:38)
[2019-06-02] MEDS: PROAMATINE PO SCH (08:39)
[2019-06-02] MEDS ORDERED: ZYRTEC PO SCH (09:00)
[2019-06-02] MEDS ORDERED: LOPRESSOR PO SCH (09:00)
[2019-06-02] MEDS ORDERED: ASPIRIN EC PO SCH (09:00)
[2019-06-02] MEDS ORDERED: THERA M PLUS PO SCH (09:00)
[2019-06-02 09:29] LABS: BASO# 0.01 X1000 (0.0-0.2); BASO% 0.1 % (0.0-0.8); HEMATOCRIT 34.3 % (42.0-52.0); HEMOGLOBIN 10.5 g/dL (14.0-18.0); IMM GRAN# 1.34 X1000 (0.0-0.04); IMM GRAN% 8.7 % (0.0-0.5); LYMPH# 0.41 X1000 (1.2-3.4); LYMPH% 2.7 % (20.5-51.1); MCH 32.5 PG (27-31); MCHC 30.6 g/dL (33-37); MCV 106.2 FL (81-99); MONO# 0.86 X1000 (0.11-0.59); MONO% 5.6 % (1.7-9.3); NEUT# 12.73 X1000 (1.4-6.5); NEUT% 82.9 % (42.2-75.2); PLT 19 X1000 (130-400); RBC 3.23 XMIL (4.7-6.1); RDW 16.5 % (11.5-14.5); WBC 15.35 X1000 (4.8-10.8)
[2019-06-02 09:49] LABS: ALB/GLOB RATIO 1.1; ALBUMIN 2.5 g/dL (3.5-5.0); CREATININE 5.3 mg/dL (0.7-1.2); POTASSIUM 4.2 mmol/L (3.5-5.1); TOTAL BILIRUBIN 0.77 mg/dL (0.20-1.00); TOTAL PROTEIN 4.8 g/dL (6.3-8.3)
[2019-06-02 09:54] LABS: CALCIUM 6.8 mg/dL (8.8-10.2)
[2019-06-02 10:26] LABS: BANDS 18 % (0-1); LYMPHS 2 % (21-51); MONO 8 % (1-9); SEGS 70 % (42-75)
[2019-06-02] MEDS ORDERED: TRANSDERM-SCOP TD SCH (11:15)
[2019-06-02] MEDS: XOPENEX NEB INH SCH (11:36)
--- NOTE | 2019-06-02 11:37 | PROGRESS NOTE ---
DATE: 06/02/2019 SUBJECTIVE: As per family who is at bedside, they report that the patient and family as well are tired of medical treatment so they request to have controlled care in this patient. They are aware of his prognosis, but they would like to proceed with. OBJECTIVE: Vital Signs: Temperature 98.2 degrees, heart rate 81, respiratory rate 18, blood pressure 88/48, O2 saturation 99% on 5 L nasal cannula. General: This is a chronically ill- looking, 78-year-old male, lying in bed in no acute distress. Cardiovascular: S1, S2 heard. No murmurs, gallops or rubs. Heart rate irregularly irregular, heart rhythm. Respiratory: Coarse breath sounds noted in both pulmonary bases. Patient not using any accessory muscles or having work of breathing. Abdomen: Soft, nontender to palpation. Bowel sounds present. No organomegaly. Extremities: No clubbing, cyanosis, or edema. Peripheral pulses present in both legs. Neurological: Patient alert oriented x3. Moves 4 extremities. The patient is being a little bit sleepy but answers questions. LABORATORY DATA: Reviewed. ASSESSMENT AND PLAN: 1. Right lower lobe pneumonia. 2. Acute hypoxemic respiratory failure. 3. Dysphagia. 4. New onset atrial fibrillation. 5. Chronic obstructive pulmonary disease not on any exacerbation. 6. End-stage renal disease on dialysis. 7. Multiple myeloma. 8. Tobacco abuse. 9. Systolic congestive heart failure. PLAN: At this point, patient decided to go for comfort care measures only. We will consult psychotherapist social worker for hospice. We will go from there. cc: Sarabjit Torres MD
[2019-06-02] MEDS: ATIVAN IV PRN (12:00)
[2019-06-02] MEDS: MORPHINE IV PRN (12:01)
--- NOTE | 2019-06-02 14:07 | NEPHROLOGY CONSULTATION ---
DATE: 06/02/2019 REASON FOR ADMISSION: Fatigue, nausea, decreased oral intake, difficulty swallowing, question of aspiration. REASON FOR CONSULTATION: Assist with management, ESRD. CONSULTING PHYSICIAN: Robbi Robert MD. HISTORY OF PRESENT ILLNESS: This is an 78-year-old gentleman known to our service for outpatient dialysis. He is followed in our office on a monthly basis but he has his dialysis in [place]. He routinely dialyzes on a Saturday, , Saturday schedule. His last dialysis was this past Saturday. The patient has a history of dysphagia and GI bleed, is followed by Dr. John GI. Apparently over the last week or so perhaps longer, he has had decreased oral intake, no nausea or vomiting but some questionable aspiration. He had worsening overall functionality and was brought in to the emergency room where chest x-ray indicated right middle and lower lobe pneumonia felt to be aspiration in nature. He was started on appropriate IV antibiotics. He was also noted in the ER to be in atrial flutter with RVR. He was admitted to the hospital for further workup and treatment. We have been asked to see him. This morning, he states that he just feels poorly and has no appetite. PAST MEDICAL HISTORY: 1. ESRD on dialysis Saturday, , Saturday. 2. Multiple myeloma, follows with Dr. Farah for chemotherapy. 3. Prostate cancer. 4. Anemia. 5. Chronic pain syndrome. 6. Coronary artery disease. 7. History of myocardial infarction. 8. Hypothyroidism. 9. History of GI bleed. 10.BPH. 11.COPD. 12.Systolic congestive heart failure. 13.History of pulmonary hypertension. 14.Dysphagia. SURGICAL HISTORY: He has had coronary artery bypass grafting x3. He has had a tunneled dialysis catheter. He had a left AV graft placed about 4 weeks ago. ALLERGIES: Ondansetron, sulfa. HOME MEDICATIONS: Are listed as aspirin, calcium acetate, Colace, Compazine, Decadron, fentanyl, Lasix, midodrine, multivitamin, Dexter, potassium, Remeron, Revlimid, Synthroid, and Velcade as well as Zyrtec. FAMILY HISTORY: Coronary artery disease and cancer. SOCIAL HISTORY: Continues to smoke less than a pack a day, has been smoking since the age of 8 (68 years). No ETOH or illicit drug use. He lives at home with family. REVIEW OF SYSTEMS: Pertinent positives noted above in the H and P. PHYSICAL EXAMINATION: Vital Signs: Temperature 98.7, pulse 96, respiratory rate 36, blood pressure 86/44. Intake 350 mL, output not measured. General: This is a chronically ill- appearing, elderly gentleman, lying in bed. He is awake and alert. He is in no acute distress, although, he does appear to feel poorly. HEENT: Normocephalic, atraumatic. He has arcus senilis noted. Pupils are equal and reactive. Conjunctivae are pale. Oral mucosa is moist. Neck: Supple. Cardiovascular: Irregularly irregular. He has a controlled rate. Pulmonary: He has decreased breath sounds. There are no wheezes or rales. Abdomen: Soft with positive bowel sounds. : Not inspected. Minimal void with hemodialysis assist. Extremities: No edema. Integumentary: Skin is warm and dry. He has multiple areas of ecchymosis. He has surgical site to the left upper extremity. Neurologic: Grossly nonfocal. LAB DATA: Current labs are pending. Labs on admission with WBC of 5, hemoglobin 11. Sodium 135, potassium 3.6, creatinine 4.8. His bicarb was 31. IMAGING: Chest x-ray: Cardiomegaly, pulmonary vascular congestion, infiltrates throughout the right middle lobe appears to be aspiration and right pleural effusion. ASSESSMENT AND PLAN: 1. Chronic kidney disease 5D. Today is his routine dialysis day. Will plan to dialyze on 3 K bath, last ultrafiltration to his dry weight 3.5 hour treatment. 2. Right middle and lower lobe pneumonia. Is on appropriately dosed antibiotics. 3. Complaints of dysphagia and signs of aspiration pneumonia. Has a consult with GI. 4. New onset atrial fibrillation, atrial flutter, with rapid ventricular response. Has Cardiology consult. 5. Multiple myeloma. Continues on chemotherapy. Is followed by Dr. Farah. Dictated by CLARISSA Dudley for Pola Smiley MD cc: Pola Smiley MD [facility]
[2019-06-02] MEDS ORDERED: REMERON SOLTAB PO SCH (21:00)
[2019-06-03] MEDS: MORPHINE IV PRN ×4 (01:13→10:09)
[2019-06-03] MEDS: ATIVAN IV PRN ×2 (08:55→10:09)
[2019-06-03 12:51] VITALS: BP 99/58
--- NOTE | 2019-06-04 10:58 | DISCHARGE SUMMARY ---
ADMISSION DATE: 06/01/2019 DISCHARGE DATE: 06/03/2019 DISCHARGE DIAGNOSES: Unfortunately, this patient from the following conditions: 1. Right middle and lower lobe pneumonia. 2. Acute hypoxemic respiratory failure. 3. Dysphagia. 4. New onset atrial fibrillation. 5. Chronic obstructive pulmonary disease. 6. End-stage renal disease, on dialysis. 7. Multiple myeloma. 8. Chronic systolic congestive heart failure. CONSULTATIONS: Nephrology, Dr. Smiley. HOSPITAL COURSE: This is an 78-year-old, male with medical conditions mentioned above. He basically came to the hospital complaining of shortness of breath, generalized weakness. He was becoming more drowsy so he decided to come to the emergency department. He was admitted. Next day, I had talked with the family and they decided that, because patient is really tired of all these medical conditions, they decided to do comfort care measures only. In that regard, we had stopped all current medications and we kept him on morphine and Ativan p.r.n. The patient seemed to be comfortable. Today, unfortunately, he around 11:10 a.m. cc: Sarabjit Torres MD
== END 2019-06-03 11:10 | disposition expired | DRG 177 ==
LOC: ED 10:09 → 2N 14:59 → SUATTDRO 14:59
PROVIDERS: ATTEND Internal Medicine